=== PATIENT | female | born 1970 | race African-American/Black ===

== ENCOUNTER 2017-01-15 13:06 | Emergency (ER) | payer OTHER ==
[~2017-01-15] VITALS: Ht 170.2 cm; Wt 72.6 kg
[~2017-01-15 13:06] MED LIST: AMLODIPINE BES2.5 MG ORAL; ANTIVERT25 MG ORAL; ZOFRAN ODT4 MG ORAL
[2017-01-15] MEDS ORDERED: LABETALOL HCL100 MG ORAL (13:14)
[2017-01-15] MEDS ORDERED: FAMOTIDINE20 MG ORAL (13:14)
[2017-01-15] MEDS ORDERED: MULTIVITAMINS1 EAC2 ORAL (13:14)
[2017-01-15 13:17] VITALS: BP 147/83
--- NOTE | 2017-01-15 13:39 | Emergency Room Report ---
History of Present Illness General Chief Complaint: Pain Source: Patient (Gagandeep Pineda) Present Illness HPI Patient is a 46-year-old female who presented after increased lower extremity pain. Patient had gradual onset of symptoms over 1 day. Patient was having increased bilateral extremity cramping. She denies any vomiting or diarrhea. She reports having prior history of hypertension. She did not take any medications for pain previously. Pain was nonradiating. It is was not associated with any numbness or weakness. (Gagandeep Pineda) Allergies: Coded Allergies: No Known Allergies (Unverified , 12/10/13) Patient History Past Medical History: see triage record Reviewed Nursing Documentation: PMH: Agreed, PSxH: Agreed (Gagandeep Pineda) Nursing Documentation-PMH Past Medical History: No History, Except For Hx Hypertension: Yes Hx Gastrointestinal Problems: Yes - GERD (Gagandeep Pineda) Review of Systems All Other Systems: negative except mentioned in HPI (Gagandeep Pineda) Physical Exam Vital Signs Date Time Temp Pulse Resp B/P Pulse Ox O2 Delivery O2 Flow Rate FiO2 01/15/17 13:08 97.2 76 14 147/83 100 Room Air Sp02 EP Interpretation: reviewed, normal General Appearance: normal inspection, well appearing, no apparent distress, alert, GCS 15, non-toxic Head: atraumatic ENT: normal ENT inspection, hearing grossly normal, normal voice Neck: normal inspection, full range of motion, supple, no bony tend Respiratory: normal inspection, lungs clear, normal breath sounds, no respiratory distress, no retraction, no wheezing Cardiovascular #1: regular rate, rhythm, no edema Gastrointestinal: normal inspection, normal bowel sounds, non tender, soft, no guarding, no hernia Genitourinary: no CVA tenderness Musculoskeletal: normal inspection, back normal, normal range of motion, no calf tenderness, Renato's Sign negative Neurologic: normal inspection, alert, oriented x3, responsive, phone circuit operator III-XII nml as tested, speech normal Psychiatric: normal inspection, judgement/insight normal, mood/affect normal Skin: normal inspection, normal color, no rash, normal turgor (Gagandeep Pineda) Medical Decision Making Diagnostic Impression: Primary Impression: Myalgia ER Course Patient presented for bilateral lower extremity pain . Differential diagnosis included but was not limited to fracture, contusion, vascular insufficiency, deep venous thrombosis , aortic aneurysm, cellulitis. Because of complexity of patient's case laboratory testing and imaging studies were ordered. The patient was noted to have no risk factor for DVT. The patient appears have good perfusion and brisk pulses to her extremities. Patient shows no pulsatile masses to her abdomen.The patient is advised to follow up with primary care doctor in 1-2 days. Patient is advised to return if any worsening condition or if any changes in status that are concerning. (Gagandeep Pineda) ER Course At this time following up patient's blood work reveals mildly elevated total CK Patient was given further IV hydration in the emergency room Also speaking with the patient she reports that she is on vitamins and trying to get again At this time patient does not show any signs of swelling in either calf The pain on discussion is on the front part of both legs And otherwise the patient appears stable for close outpatient followup Labs Test 01/15/17 13:20 01/15/17 14:00 White Blood Count 5.0 K/UL (4.8-10.8) Red Blood Count 4.55 M/UL (4.20-5.40) Hemoglobin 13.4 G/DL (12.0-16.0) Hematocrit 41.9 % (37.0-47.0) Mean Corpuscular Volume 92 FL (80-99) Mean Corpuscular Hemoglobin 29.5 PG (27.0-31.0) Mean Corpuscular Hemoglobin Concent 32.0 G/DL (32.0-36.0) Red Cell Distribution Width 12.1 % (11.6-14.8) Platelet Count 238 K/UL (150-450) Mean Platelet Volume 6.8 FL (6.5-10.1) Neutrophils (%) (Auto) 58.7 % (45.0-75.0) Lymphocytes (%) (Auto) 30.2 % (20.0-45.0) Monocytes (%) (Auto) 5.2 % (1.0-10.0) Eosinophils (%) (Auto) 4.9 % (0.0-3.0) Basophils (%) (Auto) 1.0 % (0.0-2.0) Sodium Level 139 mEQ/L (135-145) Potassium Level 4.4 mEQ/L (3.4-4.9) Chloride Level 100 mEQ/L (98-107) Carbon Dioxide Level 27 mEQ/L (20-30) Anion Gap 12 (5-15) Blood Urea Nitrogen 13 mg/dL (7-23) Creatinine 0.9 mg/dL (0.5-0.9) Estimat Glomerular Filtration Rate > 60 mL/min (>60) Glucose Level 115 mg/dL (74-106) Calcium Level 9.0 mg/dL (8.6-10.2) Total Creatine Kinase 324 U/L (26-140) Urine Color Pale yellow Urine Appearance Clear Urine pH 7 (4.5-8.0) Urine Specific [place] 1.010 (1.005-1.035) Urine Protein Negative (NEGATIVE) Urine Glucose (UA) Negative (NEGATIVE) Urine Ketones Negative (NEGATIVE) Urine Occult Blood Negative (NEGATIVE) Urine Nitrite Negative (NEGATIVE) Urine Bilirubin Negative (NEGATIVE) Urine Urobilinogen Normal MG/DL (0.0-1.0) Urine Leukocyte Esterase 1+ (NEGATIVE) Urine RBC 0-2 /HPF (0 - 2) Urine WBC 2-4 /HPF (0 - 2) Urine Squamous Epithelial Cells Few /LPF (NONE/OCC) Urine Bacteria Occasional /HPF (NONE) Urine HCG, Qualitative Negative (CHRISTIANE KULKARNI D.O.) Last Vital Signs Date Time Temp Pulse Resp B/P Pulse Ox O2 Delivery O2 Flow Rate FiO2 01/15/17 13:17 14 147/83 100 Room Air 01/15/17 13:08 97.2 76 Status: improved (Gagandeep Pineda) Status: improved (CHRISTIANE KULKARNI D.O.) Disposition: HOME, SELF-CARE Condition: Stable Referrals: NON PHYSICIAN (PCP) Additional Instructions: Patient is provided with the discharge instructions notified to follow up with primary doctor in the next 2-3 days otherwise return to the er with any worsening symptoms. Please note that this report is being documented using [employer] technology. This can lead to erroneous entry secondary to incorrect interpretation by the dictating instrument. Gagandeep Pineda Jan 15, 2017 13:39 CHRISTIANE KULKARNI D.O. Jan 15, 2017 14:34
[2017-01-15 13:46] LABS: EOSINOPHILS % (AUTO) 4.9 % (0.0-3.0); LYMPHOCYTES % (AUTO) 30.2 % (20.0-45.0); MEAN CORPUSCULAR HEMOGLOBIN 29.5 PG (27.0-31.0); MEAN CORPUSCULAR VOLUME 92 FL (80-99); MEAN PLATELET VOLUME 6.8 FL (6.5-10.1); MONOCYTES % (AUTO) 5.2 % (1.0-10.0); NEUTROPHILS % (AUTO) 58.7 % (45.0-75.0); PLATELET COUNT 238 K/UL (150-450); RED BLOOD COUNT 4.55 M/UL (4.20-5.40); RED CELL DISTRIBUTION WIDTH 12.1 % (11.6-14.8)
[2017-01-15 14:01] LABS: ANION GAP 12 (5-15); CARBON DIOXIDE 27 mEQ/L (20-30); CHLORIDE 100 mEQ/L (98-107); CREATININE 0.9 mg/dL (0.5-0.9); GLOMERULAR FILTRATION RATE > 60 mL/min (>60); HEMOLYSIS 5; POTASSIUM 4.4 mEQ/L (3.4-4.9); SODIUM 139 mEQ/L (135-145)
[2017-01-15 14:09] LABS: APPEARANCE,URINE CLEAR; KETONES,URINE NEGATIVE (NEGATIVE); LEUKOCYTE ESTERASE ,URINE 1+ (NEGATIVE); NITRITE,URINE NEGATIVE (NEGATIVE); PH,URINE 7 (4.5-8.0); PROTEIN,URINE NEGATIVE (NEGATIVE); UROBILINOGEN,URINE NORMAL MG/DL (0.0-1.0)
[2017-01-15 14:20] LABS: BACTERIA,URINE OCCASIONAL /HPF; RBC,URINE 0-2 /HPF (0 - 2); SQUAMOUS EPITHELIAL CELL,UR FEW /LPF (NONE/OCC)
[2017-01-15 14:38] VITALS: BP 147/79
== END 2017-01-15 14:57 | disposition home or self-care (01) ==
LOC: EMR 13:31
DX: M79.1 Myalgia (principal); K21.9 Gastro-esophageal reflux disease without esophagitis; I10 Essential (primary) hypertension
CPT/HCPCS: 36415; 80048; 81003; 81025; 82550; 85025; 96374; 99284; J7040

== ENCOUNTER 2017-08-08 15:18 | Emergency (ER) | payer OTHER ==
[~2017-08-08] VITALS: Ht 162.6 cm; Wt 80.3 kg
[~2017-08-08 15:18] MED LIST changes: +FAMOTIDINE20 MG ORAL; +LABETALOL HCL100 MG ORAL; +MULTIVITAMINS1 EAC2 ORAL
[2017-08-08 16:04] VITALS: BP_SYST 141; BP_SYST 149; BP_DIAS 66; BP_DIAS 85
--- NOTE | 2017-08-08 16:16 | Emergency Room Report ---
History of Present Illness General Chief Complaint: Headache Source: Patient Present Illness HPI Patient presents with complaints of pain to the left side of her head Patient reports that she has had pain before including fore head pain usually puts a cool towel on her head which helped her pain She initially thought that there might be some muscle pull on the left side however as the pain persisted intermittently Patient denies any vomiting denies any focal weakness Allergies: Coded Allergies: No Known Allergies (Unverified , 12/10/13) Patient History Past Medical History: see triage record Pertinent Family History: none Last Menstrual Period: 08/04/17 Now: No Reviewed Nursing Documentation: PMH: Agreed, PSxH: Agreed Nursing Documentation-PMH Hx Hypertension: Yes Hx Gastrointestinal Problems: Yes - GERD Review of Systems All Other Systems: negative except mentioned in HPI Physical Exam Vital Signs Date Time Temp Pulse Resp B/P (MAP) Pulse Ox O2 Delivery O2 Flow Rate FiO2 08/08/17 15:21 98.2 77 16 152/89 100 Room Air Sp02 EP Interpretation: reviewed, normal General Appearance: well appearing, no apparent distress Head: normocephalic, atraumatic Eyes: bilateral eye PERRL, bilateral eye EOMI ENT: hearing grossly normal, normal pharynx, TMs + canals normal, uvula midline Neck: full range of motion, supple, no meningismus, no bony tend Respiratory: lungs clear, normal breath sounds, no rhonchi, no respiratory distress, no retraction, no accessory muscle use Cardiovascular #1: normal peripheral pulses, regular rate, rhythm, no edema, no gallop, no JVD, no murmur Gastrointestinal: normal bowel sounds, non tender, soft, no mass, no organomegaly, non-distended, no guarding, no hernia, no pulsatile mass, no rebound Genitourinary: no CVA tenderness Musculoskeletal: normal inspection Neurologic: oriented x3, responsive, human resources benefits coordinator III-XII nml as tested, motor strength/ tone normal, sensory intact Psychiatric: mood/affect normal Skin: normal color, no rash, warm/dry, palpation normal Lymphatic: normal inspection, no adenopathy Medical Decision Making Diagnostic Impression: Primary Impression: Headache ER Course Given the patient's presentation discussion was had regarding imaging study Patient feels that the headache is different than her usual Given the somewhat acuteness of the presentation CT imaging was done which did not show any acute disease Patient has done better throughout her stay in a stable for close followup CT/MRI/US Diagnostic Results CT/MRI/US Diagnostic Results : Impression CT head no acute disease Last Vital Signs Date Time Temp Pulse Resp B/P (MAP) Pulse Ox O2 Delivery O2 Flow Rate FiO2 08/08/17 16:04 88 18 141/66 99 Room Air 08/08/17 15:21 98.2 Status: improved Disposition: HOME, SELF-CARE Condition: Improved Scripts Methocarbamol* (ROBAXIN-750*) 750 Mg Tablet 750 MG PO TID, #21 TAB 0 Refills Prov: CHRISTIANE KULKARNI D.O. 08/08/17 Ibuprofen* (MOTRIN*) 600 Mg Tablet 600 MG ORAL Q8H Y for For Pain, #20 TAB 0 Refills Prov: CHRISTIANE KULKARNI D.O. 08/08/17 Additional Instructions: Patient is provided with the discharge instructions notified to follow up with primary doctor in the next 2-3 days otherwise return to the er with any worsening symptoms. Please note that this report is being documented using [employer]idebt technology. This can lead to erroneous entry secondary to incorrect interpretation by the dictating instrument. CHRISTIANE KULKARNI D.O. Aug 08, 2017 16:16
[2017-08-08] MEDS ORDERED: IBUPROFEN600 MG ORAL (16:49)
[2017-08-08] MEDS ORDERED: ROBAXIN-750750 MG PO (16:49)
--- NOTE | 2017-08-08 16:49 | Diagnostic Imaging Report ---
Indication: Headache Technique: Contiguous 5 mm thick transaxial imaging of the head obtained in a Siemens Sensation [address] scanner. Soft tissue and bone windows generated. Automatic Exposure Control was utilized. Total Dose length Product (DLP): [address] Dose Index Volume (CTDIvol): 70.38, 0.15 mGy Comparison: none Findings: The size and configuration of the cortical sulci, basal cisterns, and ventricles are within normal limits for age. There is no mass effect, midline shift, or edema identified. There is no evidence of acute hemorrhage or abnormal intra-axial or extra-axial fluid collections. The bones and soft tissues are unremarkable. Impression: No mass effect, edema or acute bleed. The CT scanner at [facility] is accredited by the [employer] and the scans are performed using dose optimization techniques as appropriate to a performed exam including Automatic Exposure control.
--- NOTE | 2017-08-08 16:49 | Diagnostic Imaging Report ---
Indication: Headache Technique: Contiguous 5 mm thick transaxial imaging of the head obtained in a Siemens Sensation [address] scanner. Soft tissue and bone windows generated. Automatic Exposure Control was utilized. Total Dose length Product (DLP): [address] Dose Index Volume (CTDIvol): 70.38, 0.15 mGy Comparison: none Findings: The size and configuration of the cortical sulci, basal cisterns, and ventricles are within normal limits for age. There is no mass effect, midline shift, or edema identified. There is no evidence of acute hemorrhage or abnormal intra-axial or extra-axial fluid collections. The bones and soft tissues are unremarkable. Impression: No mass effect, edema or acute bleed. The CT scanner at [facility] is accredited by the [employer] and the scans are performed using dose optimization techniques as appropriate to a performed exam including Automatic Exposure control.
[2017-08-08 17:12] VITALS: BP 138/77
== END 2017-08-08 17:00 | disposition home or self-care (01) ==
LOC: EMR 16:24
DX: R51 Headache (principal); K21.9 Gastro-esophageal reflux disease without esophagitis; I10 Essential (primary) hypertension
CPT/HCPCS: 70450; 99284

== ENCOUNTER 2019-08-21 10:34 | Emergency (ER) | payer MEDICAID, OTHER ==
[~2019-08-21] VITALS: Ht 162.6 cm; Wt 86.2 kg
[~2019-08-21 10:34] MED LIST changes: +IBUPROFEN600 MG ORAL; +ROBAXIN-750750 MG PO
[2019-08-21] MEDS ORDERED: HYDROCHLOROTHIA25 MG ORAL (10:46)
[2019-08-21 11:03] VITALS: BP 141/83
--- NOTE | 2019-08-21 12:46 | Emergency Room Report ---
History of Present Illness General Chief Complaint: Skin Rash/Abscess Source: Patient Present Illness HPI 49-year-old female with history of hypertension currently controlled and gastritis currently controlled here complaining of 3 weeks of extreme pruritus bottom of feet, palms, and inside her mouth. Patient reports that every time that she has acid reflux she starts feeling pruritus in the mouth and every time that she makes a bowel movements and was having pruritus in her hands and feet. Patient reports that she used to take labetalol for hypertension however' s was switched to hydrochlorothiazide 2 weeks ago. Patient denies any recent exposure to allergens, intake of different food, or travel. No lesions are noted on palms and feet. Patient denies any tingling sensation and pain in the affected area. Has not taken medication for symptom relief. Denies anaphylaxis , chest pain, shortness of breath, palpitation, and other associated symptoms. Patient was signed out to me by at 12PM Allergies: Coded Allergies: No Known Allergies (Unverified , 12/10/13) Patient History Past Medical History: see triage record Past Surgical History: unable to obtain Pertinent Family History: none Last Menstrual Period: 08/09/2019 Now: No Immunizations: UTD Reviewed Nursing Documentation: PMH: Agreed; PSxH: Agreed Nursing Documentation-PMH Past Medical History: No History, Except For Hx Hypertension: Yes Hx Gastrointestinal Problems: Yes - GERD Review of Systems All Other Systems: negative except mentioned in HPI Physical Exam Vital Signs Date Time Temp Pulse Resp B/P (MAP) Pulse Ox O2 Delivery O2 Flow Rate FiO2 08/21/19 10:42 98.6 94 20 162/83 (109) 98 Room Air Sp02 EP Interpretation: reviewed, normal General Appearance: no apparent distress, alert, GCS 15, non-toxic Head: normocephalic, atraumatic Eyes: bilateral eye normal inspection, bilateral eye PERRL ENT: hearing grossly normal, normal pharynx, no angioedema, normal voice Neck: full range of motion, supple, supple/symm/no masses Respiratory: chest non-tender, lungs clear, normal breath sounds, no rhonchi, speaking full sentences Cardiovascular #1: regular rate, rhythm, no edema Cardiovascular #2: 2+ carotid (R), 2+ carotid (L), 2+ radial (R), 2+ radial (L) , 2+ dorsalis pedis (R), 2+ dorsalis pedis (L) Gastrointestinal: normal bowel sounds, non tender, soft, non-distended, no guarding, no rebound Rectal: deferred Genitourinary: no CVA tenderness Musculoskeletal: back normal, gait/station normal, normal range of motion, non- tender, no calf tenderness Neurologic: alert, oriented x3, responsive, motor strength/tone normal, sensory intact, speech normal Psychiatric: judgement/insight normal, memory normal, mood/affect normal, no suicidal/homicidal ideation Skin: no rash Lymphatic: no adenopathy Medical Decision Making PA Attestation All my diagnosis and treatment plans were reviewed ad discussed with my supervising physician Dr. Singer Diagnostic Impression: Primary Impression: Allergic contact urticaria Additional Impression: Antihypertensive adverse reaction ER Course 49-year-old female with history of hypertension currently controlled and gastritis currently controlled here complaining of 3 weeks of extreme pruritus bottom of feet, palms, and inside her mouth. Patient reports that every time that she has acid reflux she starts feeling pruritus in the mouth and every time that she makes a bowel movements and was having pruritus in her hands and feet. Patient reports that she used to take labetalol for hypertension however' s was switched to hydrochlorothiazide 2 weeks ago. Patient denies any recent exposure to allergens, intake of different food, or travel. No lesions are noted on palms and feet. Patient denies any tingling sensation and pain in the affected area. Has not taken medication for symptom relief. Denies anaphylaxis , chest pain, shortness of breath, palpitation, and other associated symptoms. Patient was signed out to me by at 12PM Ddx considered but are not limited to: Eczema, scabies, lice, allergic urticaria Vital signs: are WNL, pt. is afebrile H&PE are most consistent with:allergic contact urticaria currently not present. ORDERS: Benadryl, prednisone, hydrocortisone cream ED INTERVENTIONS: None required at this time. DISCHARGE: At this time pt. is stable for d/c to home. Will provide printed patient care instructions, and any necessary prescriptions. Care plan and follow up instructions have been discussed with the patient prior to discharge. Patient to follow-up with primary care provider and referral to water resource project manager. At this time I was unable to see any rash however do follow with her primary care provider in this regard as it could be secondary to adverse reaction of medication you are taking. Return to the emergency room for worsening symptoms. Last Vital Signs Date Time Temp Pulse Resp B/P (MAP) Pulse Ox O2 Delivery O2 Flow Rate FiO2 08/21/19 11:03 98.7 87 18 141/83 99 Room Air Disposition: HOME, SELF-CARE Condition: Stable Scripts Hydrocortisone/Aloe (Hydrocortisone/Aloe 1% Cream*) Y Cr 1 APPLIC TOPIC Q6H PRN for Itching, #30 GM Prov: Miguel Enriquez 08/21/19 Diphenhydramine Hcl* (BENADRYL*) 25 Mg Capsule 25 MG ORAL Q6H PRN for Itching, #20 CAP Prov: Miguel Enriquez 08/21/19 Prednisone* (PREDNISONE*) 20 Mg Tablet 40 MG ORAL DAILY for 5 Days, #10 TAB Prov: Miguel Enriquez 08/21/19 Referrals: NON PHYSICIAN (PCP) Patient Instructions: Allergies, [id number], Rash Additional Instructions: Take medication as directed, follow-up with your primary care provider, if worsening symptoms return to the emergency room. Miguel Enriquez Aug 21, 2019 12:46
[2019-08-21] MEDS ORDERED: PREDNISONE20 MG ORAL (12:47)
[2019-08-21] MEDS ORDERED: HYDROCORTISONE-30 GM TOPIC (12:47)
[2019-08-21] MEDS ORDERED: BENADRYL25 MG ORAL (12:47)
--- NOTE | 2019-08-21 13:00 | NUR ---
Pt left without taking vital signs.
== END 2019-08-21 13:10 | disposition home or self-care (01) ==
LOC: EMR 11:50
DX: L50.0 Allergic urticaria (principal); T46.5X5A Adverse effect of other antihypertensive drugs, initial encounter; K21.9 Gastro-esophageal reflux disease without esophagitis; I10 Essential (primary) hypertension; Y92.9 Unspecified place or not applicable
CPT/HCPCS: 99282

== ENCOUNTER 2020-02-23 18:00 | Emergency (ER) | payer MEDICAID, OTHER ==
[~2020-02-23] VITALS: Ht 160 cm; Wt 81.6 kg
[~2020-02-23 18:00] MED LIST changes: +BENADRYL25 MG ORAL; +HYDROCHLOROTHIA25 MG ORAL; +HYDROCORTISONE-30 GM TOPIC; +PREDNISONE20 MG ORAL
[2020-02-23 18:12] VITALS: BP 150/84
--- NOTE | 2020-02-23 18:12 | NUR ---
ED Nurse Note: PT walked in to ED for C/O sharp pain to left side of her head since last night. PT denies any n/v/d
[2020-02-23] MEDS ORDERED: Metoclopramide 10mg/2ml Inj IVP ONE (18:30)
[2020-02-23] MEDS ORDERED: Ketorolac 30mg Inj IV ONE (18:30)
--- NOTE | 2020-02-23 18:34 | NUR ---
ED Nurse Note: blood sample collected and sent to lab. pt is unabkle to provide urine at this time.
[2020-02-23 18:46] LABS: EOSINOPHILS % (AUTO) 2.7 % (0.0-3.0); HEMATOCRIT 42.3 % (37.0-47.0); HEMOGLOBIN 13.3 G/DL (12.0-16.0); LYMPHOCYTES % (AUTO) 27.5 % (20.0-45.0); MEAN CORPUSCULAR VOLUME 91 FL (80-99); MONOCYTES % (AUTO) 4.5 % (1.0-10.0); NEUTROPHILS % (AUTO) 64.3 % (45.0-75.0); PLATELET COUNT 258 K/UL (150-450); RED BLOOD COUNT 4.67 M/UL (4.20-5.40); RED CELL DISTRIBUTION WIDTH 12.9 % (11.6-14.8); WHITE BLOOD COUNT 9.1 K/UL (4.8-10.8)
--- NOTE | 2020-02-23 19:06 | NUR ---
ED Nurse Note: report given to Elizabeth Richter RN. endorsed plan of care.
[2020-02-23 19:12] LABS: ANION GAP 7 mmol/L (5-15); BLOOD UREA NITROGEN 9 mg/dL (7-18); CALCIUM 8.6 MG/DL (8.5-10.1); CARBON DIOXIDE 29 MMOL/L (21-32); CHLORIDE 104 MMOL/L (98-107); POTASSIUM 3.7 MMOL/L (3.5-5.1); SODIUM 140 MMOL/L (136-145)
--- NOTE | 2020-02-23 19:14 | Emergency Room Report ---
History of Present Illness General Chief Complaint: Headache Source: Patient Present Illness HPI Patient is a 49-year-old female presents after increased left-sided headache. Gradual onset since yesterday. Denies any fever. Similar symptoms in the past. Denies any cough or neck stiffness. Denies any extremity numbness or weakness. No visual changes. Previous CT imaging had been unremarkable. Patient reports having a left-sided throbbing sensation. She did not take any pain medications at home other than Tylenol. Denies any recent sick contacts. Allergies: Coded Allergies: No Known Allergies (Unverified , 12/10/13) COVID-19 Screening Contact w/high risk pt: No Recent Travel to affected area: No Experienced COVID-19 symptoms?: No COVID-19 Testing performed DRY ICE MACHINE OPERATOR: No Patient History Past Medical History: see triage record Reviewed Nursing Documentation: PMH: Agreed; PSxH: Agreed Nursing Documentation-PMH Past Medical History: No History, Except For Hx Hypertension: Yes Hx Gastrointestinal Problems: Yes - GERD Review of Systems All Other Systems: negative except mentioned in HPI Physical Exam Vital Signs Date Time Temp Pulse Resp B/P (MAP) Pulse Ox O2 Delivery O2 Flow Rate FiO2 02/23/20 18:10 98.8 82 16 158/89 (112) 99 Room Air General Appearance: well appearing, no apparent distress, alert, GCS 15 Head: normocephalic, atraumatic ENT: hearing grossly normal, normal voice Neck: full range of motion, supple Respiratory: normal inspection, chest non-tender, lungs clear, no respiratory distress, speaking full sentences Cardiovascular #1: normal inspection Gastrointestinal: normal inspection Musculoskeletal: normal inspection Neurologic: normal gait Psychiatric: mood/affect normal Skin: no rash Medical Decision Making Diagnostic Impression: Primary Impression: Headache Additional Impression: Vertigo ER Course Patient presented for headache. Differential diagnoses included but was not limited to skull fracture, subarachnoid hemorrhage, meningitis, aneurysm, mass lesion, intracranial hemorrhage. Patient has a benign exam and does not appear to require any imaging at this time. Neurologic exam is nonfocal and patient does not have any visual changes or temporal artery tenderness.headache was completely relieved after medications. test was negative. Patient is advised to follow up with primary care doctor in 1-2 days. Patient is advised to return if any worsening condition or if any changes in status that are concerning. This report is dictated with [employer] research associate policy software which may occasionally lead to discrepancies related to use of this software. Labs Test 02/23/20 18:30 White Blood Count 9.1 K/UL (4.8-10.8) Red Blood Count 4.67 M/UL (4.20-5.40) Hemoglobin 13.3 G/DL (12.0-16.0) Hematocrit 42.3 % (37.0-47.0) Mean Corpuscular Volume 91 FL (80-99) Mean Corpuscular Hemoglobin 28.4 PG (27.0-31.0) Mean Corpuscular Hemoglobin Concent 31.4 G/DL (32.0-36.0) Red Cell Distribution Width 12.9 % (11.6-14.8) Platelet Count 258 K/UL (150-450) Mean Platelet Volume 6.8 FL (6.5-10.1) Neutrophils (%) (Auto) 64.3 % (45.0-75.0) Lymphocytes (%) (Auto) 27.5 % (20.0-45.0) Monocytes (%) (Auto) 4.5 % (1.0-10.0) Eosinophils (%) (Auto) 2.7 % (0.0-3.0) Basophils (%) (Auto) 1.0 % (0.0-2.0) EKG Diagnostic Results ST Segments: other Last Vital Signs Date Time Temp Pulse Resp B/P (MAP) Pulse Ox O2 Delivery O2 Flow Rate FiO2 02/23/20 18:12 98.8 85 17 150/84 98 Room Air Status: improved Disposition: HOME, SELF-CARE Condition: Stable Scripts Acetamin/Butalbital/Caffeine* (FIORICET*) 1 Ea Tab 1 TAB ORAL Q6H, #15 TAB 0 Refills Prov: Gagandeep Pineda MD 02/23/20 Gagandeep Pineda MD February 23, 2020 19:14
[2020-02-23 19:23] LABS: APPEARANCE,URINE SLIGHTLY CLOUDY; BILIRUBIN, URINE NEGATIVE (NEGATIVE); COLOR,URINE PALE YELLOW; GLUCOSE, URINE (UA) NEGATIVE (NEGATIVE); KETONES,URINE NEGATIVE (NEGATIVE); LEUKOCYTE ESTERASE ,URINE NEGATIVE (NEGATIVE); NITRITE,URINE NEGATIVE (NEGATIVE); PH,URINE 6 (4.5-8.0); PROTEIN,URINE NEGATIVE (NEGATIVE); UROBILINOGEN,URINE NORMAL MG/DL (0.0-1.0)
[2020-02-23] MEDS ORDERED: FIORICET1 EA ORAL (19:43)
[2020-02-23 20:08] VITALS: BP 150/84
--- NOTE | 2020-02-23 20:08 | NUR ---
ER DISCHARGE NOTE: Patient is cleared to be discharged per ERMD, pt is aox4, on room air, with stable vital signs. pt was given dc and prescription instructions, pt was able to verbalize understanding, pt id band and iv site removed without complications. pt is able to ambulate with steady gait. pt took all belongings.
== END 2020-02-23 20:08 | disposition home or self-care (01) ==
LOC: EMR 18:46
DX: R51 Headache (principal); R42 Dizziness and giddiness; I10 Essential (primary) hypertension; K21.9 Gastro-esophageal reflux disease without esophagitis
CPT/HCPCS: 36415; 80048; 81003; 81025; 85025; 96374; 96375; J1885; J2765; Z7502; 99284